=== PATIENT | male | born 1985 | race Caucasian/White ===

== ENCOUNTER 2017-11-30 10:47 | Day surgery (SDC) | payer OTHER ==
[2017-11-29 12:26] VITALS: BMI 28.3
[2017-11-30] MEDS ORDERED: Gadobenate Dimeglumine 529 MG/1 ML (20ML VIAL) ONE (11:13)
--- NOTE | 2017-11-30 15:51 | MRI ---
MRI LUMBAR SPINE WITH AND WITHOUT CONTRAST: 11/30/17 Multiplanar and multisequential imaging lumbar spine obtained. Postcontrast images were obtained adm inistering 18 mL of Multihance IV. INDICATIONS: Low back pain. radiation to both lower extremities. No history of surgery. FINDINGS: The lumbar vertebrae maintain normal height and alignment. Vertebral body signal is normal. Mild loss of disc space at L5-S1 with loss of disc signal. At T12-L1, normal disc bulge flattens the thecal sac. No central canal or foraminal stenosis. At L1-2, mild disc bulge flattens the thecal sac. Mild facet hypertrophy. Very mild central canal coleen nosis. At L2-3, broad based flattens the thecal sac. Mild facet hypertrophy. Mild central canal stenosis. At L3-4, broad based disc bulge combined with mild facet hypertrophy results in moderate central vipin l stenosis. At L4-5, broad based disc bulge with associated facet and ligamentous hypertrophy results in moderate central canal stenosis. At L5-S1, There is a diffuse disc bulge with focal disc protrusion paracentrally to the left. This fl attens the anterior thecal sac centrally and to the left and displaces traversing left S1 nerve root. There is surrounding enhancement. IMPRESSION: Disc protrusion on the left at L5-S1. There is facet and ligamentous hypertrophy resulting in moderat e central canal stenosis. This focal protrusion displaces the traversing left S1 nerve root. Disc bulge at L3-4 and L4-5 results in moderate central canal stenosis. POS: DANNY
== END 2017-12-01 14:45 | disposition home or self-care (01) ==
LOC: SDC/OP 10:47
PROVIDERS: ATTEND Family Medicine
DX: M51.17 Intervertebral disc disorders with radiculopathy, lumbosacral region (principal); M99.83 Other biomechanical lesions of lumbar region; Z87.39 Personal history of other diseases of the musculoskeletal system and connective tissue
CPT/HCPCS: 72158; A9579